=== PATIENT | female | born 1955 | race Two or more races ===

== ENCOUNTER 2018-06-09 20:22 | Emergency (ER) | payer OTHER ==
[2018-06-09] MEDS ORDERED: Albuterol/Ipratropium NEB.SOL* Albuterol 2.5 MG/Ipratropium 0.5 MG 3 ML INH ONE (23:22)
--- NOTE | 2018-06-09 23:22 | ED ---
Respiratory - HPI Summary HPI Summary: This patient is a 62 year old female presenting to [facility] accompanied by with a chief complaint of cough, congestion, and myalgia since 3 days ago. Patient states that she has been seen at yesterday and was diagnosed with bronchitis. The pain is rated 9/10 in severity. Symptoms aggravated by position. Patient states that she coughs less while sitting up, but worsens while lying down. Symptoms alleviated by nothing. Patient additionally reports rash over neck. Patient denies fever - History of Current Complaint Chief Complaint: EDFluSymptoms Stated Complaint: COUGH/CONGESTION Time Seen by Provider: 06/09/18 22:48 Hx Obtained From: Patient Onset/Duration: Lasting Days, Still Present Timing: Constant Current Severity: Moderate Pain Intensity: 9 Character: Cough (Nonproductive) Sputum Amount: None Aggravating Factor(s): Recumbent Position Alleviating Factor(s): Nothing Associated Signs and Symptoms: Negative - fever, Nasal Congestion - Allergy/Home Medications Allergies/Adverse Reactions: Allergies Allergy/AdvReac Type Severity Reaction Status Date / Time No Known Allergies Allergy Verified 06/09/18 20:36 Home Medications: Home Medications Albuterol Sulfate [Ventolin Hfa] 1 - 2 puff INH Q4HR PRN 06/09/18 [History Confirmed 06/09/18] Benzonatate CAP* [Tessalon 100 MG CAP*] 1 - 2 cap PO TID PRN 06/09/18 [History Confirmed 06/09/18] Clotrimazole JOSE* [Mycelex Jose*] 1 jose PO Q6HR 06/09/18 [History Confirmed 06/09/18] Omeprazole 1 tab PO DAILY 06/09/18 [History Confirmed 06/09/18] PMH/Surg Hx/FS Hx/Imm Hx Previously Healthy: No Opthamlomology History: Denies: Hx Legally Blind EENT History: Denies: Hx Deafness Infectious Disease History: No Infectious Disease History: Denies: Traveled Outside the [place] in Last 30 Days - Family History Known Family History: Negative: Hypertension - Social History Lives: With Family Alcohol Use: None Hx Substance Use: No Substance Use Type: Reports: None Hx Tobacco Use: No Smoking Status (MU): Never Smoked Tobacco Review of Systems Negative: Fever ENT: Other - Nasal congestion Positive: Cough Positive: Myalgia Positive: Rash All Other Systems Reviewed And Are Negative: Yes Physical Exam - Summary Physical Exam Summary: VITAL SIGNS: Reviewed. GENERAL: Patient is a well-developed and nourished (MALE OR FEMALE) who is lying comfortable in the stretcher. Patient is not in any acute respiratory distress. HEAD AND FACE: No signs of trauma. No ecchymosis, hematomas or skull depressions. No sinus tenderness. EYES: PERRLA, EOMI x 2, No injected conjunctiva, no nystagmus. EARS: Hearing grossly intact. Ear canals and tympanic membranes are within normal limits. MOUTH: Oropharynx within normal limits. NECK: Supple, trachea is midline, no adenopathy, no JVD, no carotid bruit, no c- spine tenderness, neck with full ROM. CHEST: Symmetric, no tenderness at palpation LUNGS: Bilateral mild expiratory wheezes. CVS: Regular rate and rhythm, S1 and S2 present, no murmurs or gallops appreciated. ABDOMEN: Soft, non-tender. No signs of distention. No rebound no guarding, and no masses palpated. Bowel sounds are normal. EXTREMITIES: FROM in all major joints, no edema, no cyanosis or clubbing. NEURO: Alert and oriented x 3. No acute neurological deficits. Speech is normal and follows commands. SKIN: Dry and warm. Macular rash over lower neck Triage Information Reviewed: Yes Vital Signs On Initial Exam: Initial Vitals Temp Pulse Resp BP Pulse Ox 98.2 F 81 20 153/103 93 06/09/18 20:32 06/09/18 20:32 06/09/18 20:32 06/09/18 20:32 06/09/18 20:32 Vital Signs Reviewed: Yes Diagnostics - Vital Signs Vital Signs Temp Pulse Resp BP Pulse Ox 06/09/18 22:00 71 95 06/09/18 21:49 71 98 06/09/18 21:47 69 172/79 98 06/09/18 20:32 98.2 F 81 20 153/103 93 - Laboratory Lab Statement: Any lab studies that have been ordered have been reviewed, and results considered in the medical decision making process. - Radiology CXR Radiology Interpretation Completed By: ED Physician Summary of Radiographic Findings: CXR reveals, per ED physician, No acute process. Pending official report. Disposition - Course Course Of Treatment: This patient is a 62 year old female presenting to [facility] accompanied by with a chief complaint of cough, congestion, and myalgia since 3 days ago. Patient states that she has been seen at yesterday and was diagnosed with bronchitis. CXR reveals, per ED physician, No acute process. Pending official report. In the ED course the patient was given Albuterol, Deltasone, Amoxicillin, Codeine. The pt is hemodynamically stable, alert and oriented x3. Patient will be discharged with a dx of sinusitis, flu-like illness. Patient is advised to follow up with PCP in 3 days. The patient is agreeable with this plan. - Diagnoses Provider Diagnoses: Sinusitis, Flu-like symptoms Discharge - Sign-Out/Discharge Documenting (check all that apply): Patient Departure Patient Received Moderate/Deep Sedation with Procedure: No - Discharge Plan Condition: Stable Disposition: HOME Prescriptions: Amoxicillin/Clavulanate TAB* [Augmentin TAB 875*] 875 mg PO BID #20 tab Codeine TAB* [Codeine Tab*] 30 mg PO Q6H PRN #14 tab MDD 4 PRN Reason: Cough predniSONE TAB* [Deltasone TAB*] 50 mg PO DAILY #5 tab Patient Education Materials: Sinusitis (ED) Referrals: Marley Chapman MD [Primary Care Provider] - 3 Days Additional Instructions: Return to the ED for any new or worsening symptoms. - Attestation Statements Document Initiated by Scribe: Yes Documenting Scribe: Otis Rosenberg Provider For Whom Sueibe is Documenting (Include Credential): Fausto Lovelace MD Scribe Attestation: Otis Garsia scribed for Fausto Lovelace MD on 06/10/18 at 0021. Status of Scribe Document: Ready
[2018-06-09] MEDS ORDERED: Codeine TAB* 30 MG PO ONE (23:23)
[2018-06-09] MEDS: Albuterol 2.5 MG/3 ML NEB.SOL* (0.083%) INH SCH ×2 (23:48→23:57)
[2018-06-09 23:55] LABS: Influenza A Molecular NEGATIVE (Negative); Influenza B Molecular NEGATIVE (Negative)
[2018-06-10] MEDS ORDERED: Amoxicillin/Clavulanate TAB* 875 MG PO ONE (00:13)
[2018-06-10] MEDS ORDERED: predniSONE TAB* 50 MG PO ONE (00:14)
[2018-06-10 00:45] VITALS: BP 141/73
== END 2018-06-10 00:48 | disposition home or self-care (01) ==
LOC: ED 20:22
DX: J32.9 Chronic sinusitis, unspecified (principal); J11.1 Influenza due to unidentified influenza virus with other respiratory manifestations; R21 Rash and other nonspecific skin eruption
CPT/HCPCS: 71045; 99283; A9270-GY; J7512